=== PATIENT | female | born 1980 | race Caucasian/White ===

== ENCOUNTER 2016-08-21 11:40 | Outpatient (CLI) | payer OTHER | END 2016-08-21 13:20 | disposition home or self-care (01) | LOC: OB SRH 11:40 → OBC SRH 11:40 → OB SRH 11:41 → OBC SRH 13:20 | PROC: 4A0HXCZ Measurement of Products of Conception, Cardiac Rate, External Approach (ICD-10-PCS; principal; 2016-08-21) | DX: O30.003 Twin pregnancy, unspecified number of placenta and unspecified number of amniotic sacs, third trimester (principal); O09.523 Supervision of elderly multigravida, third trimester; Z3A.35 35 weeks gestation of pregnancy ==